=== PATIENT | male | born 1955 | race Hispanic/Latino ===

== ENCOUNTER 2017-10-19 13:26 | Emergency (ER) | payer BC ==
[2017-10-19 13:39] VITALS: BMI 29.5
[2017-10-19 13:42] VITALS: RESP 18
--- NOTE | 2017-10-19 14:14 | ED PDOC ---
Arrival/HPI - General Historian: Patient - History of Present Illness Time/Duration: 4-6 hours Symptom Onset: Sudden Symptom Course: Worsening - General Chief Complaint: Dizziness/Lightheaded Time Seen by Provider: 10/19/17 14:02 - History of Present Illness Narrative History of Present Illness (Text): 10/19/17 16:39 This is a 62 yo M with PMH of DM II on insulin and HLD who presents with complaint of dizziness/lightheadedness exacerbated by position changes of the head, intermittent ear fullness, and elevated blood sugars. Reports intermittent ear fullness x2 days, but initially attributed due to sinus congestion with post-nasal drip and ignored it; denies any hearing loss associated. This AM, was driving [place] the [place], and as he looked over his shoulder to change lanes, became dizzy and lightheaded. Pulled over to side of road after crossing the bridge and checked his sugars, reports BG 213 on his monitor. Waited for 20 minutes, still felt lightheaded, started to feel nauseous, rechecked blood glucose, and found to be 220, so presented to hospital. Denies room spinning, emesis, syncope/near-syncope, cough, diaphoresis, vision changes, chest pain, shortness of breath. Reports that he did not eat breakfast today, so he only took his AM long-acting insulin dose ( thinks it Levemir), did not take his short-acting insulin (thinks it Humalin). Reports baseline BG 130's-230's, believes last A1c was 9 (checked by [facility] every 3 month). Reports compliance otherwise will all meds. Denies fevers, chills, sick contacts, tinnitus, reduced hearing in either ear. Does report worsening dizziness and nausea with any head movements or position changes since arrival to ED. All other ROS in 12-system review negative. PMH: As above PSH: L knee arthroscopy Soc Hx: denies tobacco, alcohol, illicits/IVDA Fam Hx: denies PMD: T [facility] (Pepito Noel) Modifying Factors (Text): 10/19/17 17:08 Worse with position changes and with head movements (Pepito Noel) Past Medical History - Provider Review Nursing Documentation Reviewed: Yes - Infectious Disease Hx of Infectious Diseases: None - Endocrine/Metabolic Hx Diabetes Mellitus Type 1: Yes - Psychiatric Hx Substance Use: No - Surgical History Hx Orthopedic Surgery: Yes (L knee) - Anesthesia Hx Anesthesia: Yes Hx Anesthesia Reactions: No Hx Malignant Hyperthermia: No Family/Social History - Physician Review Nursing Documentation Reviewed: Yes Family/Social History: No Known Family HX Smoking Status: Never Smoked Hx Alcohol Use: No Hx Substance Use: No Allergies/Home Meds Allergies/Adverse Reactions: Allergies No Known Allergies Allergy (Verified 10/19/17 13:39) Home Medications: Home Meds Medication Instructions Recorded Confirmed Fluticasone Nasal [Flonase] 1 spray .ROUTE DAILY 10/19/17 10/19/17 Levocetirizine Dihydrochloride 1 tab PO DAILY 10/19/17 10/19/17 [Xyzal] Naproxen [Naprosyn Tab] 1 tab PO BID PRN 10/19/17 10/19/17 Review of Systems - Physician Review All systems were reviewed & negative as marked: Yes (as per HPI) - Review of Systems Constitutional: Normal. absent: Fatigue Eyes: Normal. absent: Vision Changes, Photophobia, Eye Pain ENT: Rhinorrhea (intermittently x2 days), Other (intermittent ear fullness x2 days). absent: Hearing Changes, Tinnitus Respiratory: Normal. absent: SOB Cardiovascular: Normal. absent: Chest Pain, Palpitations, WISE, Syncope Gastrointestinal: Nausea. absent: Normal, Abdominal Pain, Vomiting Genitourinary Male: Normal. absent: Dysuria, Frequency, Hematuria Musculoskeletal: Normal. absent: Back Pain, Neck Pain Neurological: Dizziness (worse with head movements or positional changes), Other (denies room-spinning). absent: Headache, Focal Weakness, Gait Changes Psychiatric: Normal Physical Exam Vital Signs Reviewed: Yes Temperature: Afebrile Blood Pressure: Hypertensive Pulse: Regular Respiratory Rate: Normal Appearance: Positive for: Well-Appearing, Non-Toxic, Uncomfortable Pain Distress: None Mental Status: Positive for: Alert and Oriented X 3 Finger Stick Blood Glucose: 216 - Systems Exam Head: Present: Atraumatic, Normocephalic Pupils: Present: PERRL. No: Sluggish, Non-Reactive, Pinpoint Extroacular Muscles: Present: EOMI (dizziness elicited when looking left- superior direction). No: Gaze Palsy, Entrapment Conjunctiva: Present: Normal. No: Injected, Icteric Ears: Present: Normal, NORMAL TM, Normal Canal, Other (mild cerumen in right ear partially overlying TM). No: Erythema, TM Bulging, Fluid, TM Perf Mouth: Present: Moist Mucous Membranes, Normal Lips, Normal Tounge, Normal Teeth. No: Dry, Drooling Nose (External): Present: Atraumatic. No: Abrasion, Laceration Nose (Internal): Present: No Active Bleeding. No: Epistaxis Neck: Present: Normal Range of Motion (self-limiting due to dizziness with position changes, but passive ROM intact and appropriate), Trachea Midline. No : MIDLINE TENDERNESS, JVD Respiratory/Chest: Present: Clear to Auscultation, Good Air Exchange. No: Respiratory Distress, Accessory Muscle Use, Wheezes, Decreased Breath Sounds, Rales, Rhonchi, Tachypneic, Tender to Palpation Cardiovascular: Present: Regular Rate and Rhythm, Normal S1, S2. No: Murmurs, Irregular Rhythm, Tachycardic, Bradycardic Abdomen: Present: Normal Bowel Sounds. No: Tenderness, Distention, Guarding, Mass/Organomegaly Upper Extremity: Present: Normal Inspection, Normal ROM, NORMAL PULSES. No: Cyanosis, Edema, Tenderness, Swelling, Erythema, Deformity Lower Extremity: Present: Normal Inspection, NORMAL PULSES, Normal ROM. No: Edema, CALF TENDERNESS, Cyanosis, Tenderness, Swelling, Erythema, Deformity Neurological: Present: GCS=15, Speech Normal, Motor Func Grossly Intact, Normal Sensory Function, Other (alicia-hallpike testing positive for horizontal nystagmus when turning head right with eyes looking toward ceiling (leftward), no nystagmus appreciated when head turned left) Skin: Present: Warm, Dry, Normal Color. No: Rashes Lymphatic: No: Cervical Adenopathy Psychiatric: Present: Alert, Oriented x 3, Normal Insight, Normal Concentration , Normal Affect, Normal Mood Vital Signs Temp Pulse Resp BP Pulse Ox 10/19/17 15:26 77 18 155/79 H 97 10/19/17 13:42 97.7 F 78 18 158/84 H 96 Medical Decision Making Re-evaluation Time: 15:32 Reassessment Condition: Re-examined, Improved ED Course and Treatment: 10/19/17 15:07 Patient Seen With Resident: In agreement with resident note which contains more details about the patient. Patient was seen and evaluated with resident. Came up with plan and treatment together. 10/19/17 EKG shows NSR at 73 BPM. Interpreted by me. (Tee Overton) 10/19/17 14:39 Ddx: BPPV vs labyrinthitis vs migraine/vestibular migraine, need to rule out acute hypoglycemic in diabetic who skipped meals Fingerstick 216, so not acute hypoglycemia Ears appear normal on exam, less likely labyrinthitis Denies photo- or phono-phobia, less likely migraine EKG obtained, QTc wnl so will give Reglan for nausea Hx prior vertigo treated with meclizine, given findings on [place]-hallpike most likely BPPV, will give another trial with Meclizine and reassess, see if patient safely able to ambulate after 10/19/17 15:48 Nausea resolved with Reglan, dizziness/lightheadedness resolved with Meclizine Instructed patient to make appointment with PMD within 1 week Script for Meclizine 25mg PO TID PRN #21 electronically transmitted to outpatient pharamacy of patient's choice. Patient then discharged to home. Seen, reviewed, and discussed with attending, Dr. Overton. (Pepito Noel) - Lab Interpretations Lab Results: Lab Results 10/19/17 13:41: POC Glucose (mg/dL) 216 H - Medication Orders Current Medication Orders: Discontinued Medications Meclizine HCl (Antivert) 25 mg PO STAT STA Stop: 10/19/17 15:51 Last Admin: 10/19/17 16:15 Dose: 25 mg Metoclopramide HCl (Reglan) 10 mg PO STAT STA Stop: 10/19/17 14:43 Last Admin: 10/19/17 15:08 Dose: 10 mg Disposition/Present on Arrival - Present on Arrival Any Indicators Present on Arrival: No History of DVT/PE: No History of Uncontrolled Diabetes: No Urinary Catheter: No History of Decub. Ulcer: No History Surgical Site Infection Following: None - Disposition Have Diagnosis and Disposition been Completed?: Yes Disposition Time: 15:34 Patient Plan: Discharge - Disposition Diagnosis: BPPV (benign paroxysmal positional vertigo) Disposition: HOME/ ROUTINE Patient Problems: Current Active Problems Problem Status Onset BPPV (benign paroxysmal positional vertigo) Acute Condition: GOOD Discharge Instructions (ExitCare): Vertigo (a Type of Dizziness) (DC), Vestibular Exercises Additional Instructions: ZOË HARMAN, thank you for letting us take care of you today. Your providers were Tee Overton DO & Pepito Noel DO, and you were treated for DIZZINESS/LIGHTHEADED. The emergency medical care you received today was directed at your acute symptoms. You were prescribed Meclizine for possible Vertigo, which was electronically transmitted to the pharmacy of your choice, please roller picker the prescription and take as directed. It may take several days for your symptoms to resolve. Return to the Emergency Department if your symptoms worsen, do not improve, or if you have any other problems. Please contact your doctor (Dr. Chacko) or call one of the physicians/ clinics you have been referred to that are listed on the Patient Visit Information form that is included in your discharge packet. Bring any paperwork you were given at discharge with you along with any medications you are taking to your follow up visit. Our treatment cannot replace ongoing medical care by a primary care provider outside of the emergency department. Thank you for allowing the [facility] team to be part of your care today. If you had an X-Ray or CT scan: A Radiologist will review the ED reading if any change in treatment is needed we will contact you. If you had a blood, urine, or wound culture: It will take several days for the results, if any change in treatment is needed we will contact you. If you had an STI test: It will take 48 hours for the results. Please call after 1 week if you have not heard back. Prescriptions: Meclizine HCl 25 mg PO TID PRN #21 tablet PRN Reason: Dizziness Referrals: Landon Chacko MD [Family Provider] - Follow up with primary Forms: Eons (Vietnamese)
[2017-10-19] MEDS ORDERED: Metoclopramide 5 mg/5 ml Oral Sol PO STA (14:42)
[2017-10-19 16:40] VITALS: BP 152/70; PULSE 75; TEMP 98; O2SAT 98
--- NOTE | 2017-10-20 23:57 | CARD ---
APPROVED REPORT EKG Measurement Heart [id number] <Conclusion> Sinus rhythm with premature atrial complexes Otherwise normal ECG
== END 2017-10-19 16:39 | disposition home or self-care (01) ==
LOC: ED 13:26
DX: H81.10 Benign paroxysmal vertigo, unspecified ear (principal); E11.9 Type 2 diabetes mellitus without complications; E78.5 Hyperlipidemia, unspecified; Z79.4 Long term (current) use of insulin